=== PATIENT | male | born 1960 | race African-American/Black ===

== ENCOUNTER 2016-06-28 07:33 | Outpatient (CLI) | payer OTHER ==
[2016-06-28 10:15] LABS: Anion Gap 15 mmol/L (10-20); BUN (Urea Nitrogen) 20 mg/dL (8.4-25.7); Calc. Creatinine Clearance 0 mL/min (70-130); Calcium 9.7 mg/dL (7.8-10.44); Carbon Dioxide 21 mmol/L (22-29); Chloride 102 mmol/L (98-107); Estimated GFR-MDRD 78; Glucose 99 mg/dL (70-105); Potassium 5.1 mmol/L (3.5-5.1); Sodium 133 mmol/L (136-145)
== END 2016-06-28 07:34 | disposition home or self-care (01) ==
LOC: NAV LABSP 07:33
PROVIDERS: ATTEND Family Medicine
DX: I12.9 Hypertensive chronic kidney disease with stage 1 through stage 4 chronic kidney disease, or unspecified chronic kidney disease (principal); N18.3 Chronic kidney disease, stage 3 (moderate); R60.0 Localized edema
CPT/HCPCS: 36415; 80048

== ENCOUNTER 2016-06-30 06:47 | Outpatient (CLI) | payer OTHER ==
[2016-06-30 10:31] LABS: #Eosinphils 0.1 thou/uL (0.0-0.7); #Lymphocytes 1.2 thou/uL (1.20-3.40); #Monocytes 0.3 thou/uL (0.11-0.59); #Neutrophils 3.2 thou/uL (1.40-6.50); %Basophils 0.7 % (0.0-1.0); %Eosinophils 2.4 % (0.0-10.0); %Lymphocytes 24.2 % (21.0-51.0); %Monocytes 6.2 % (0.0-10.0); %Neutrophils 66.5 % (42.0-75.0); Hemoglobin 9.1 g/dL (14.0-18.0); Mean Corpuscular Hemoglobin 24.9 pg (27.0-31.0); Mean Corpuscular Volume 80.2 fl (80.0-94.0); Mean Platelet Volume 4.9 fL (7.4-10.4); Platelet Count 327 thou/uL (130-400); RBC Distribution Width 18.8 % (11.5-14.5); Red Blood Cell (RBC) Count 3.65 mill/uL (4.70-6.10); White Blood Cell (WBC) Count 4.8 thou/uL (4.8-10.8)
[2016-06-30 10:42] LABS: ALT (SGPT) 16 U/L (8-55); AST (SGOT) 25 U/L (5-34); Albumin 2.7 g/dL (3.5-5.0); Alkaline Phosphatase 90 U/L (40-150); Anion Gap 11 mmol/L (10-20); BUN (Urea Nitrogen) 18 mg/dL (8.4-25.7); Bilirubin, Direct 0.1 mg/dL (0.1-0.3); Bilirubin, Total 0.2 mg/dL (0.2-1.2); Calc. Creatinine Clearance 0 mL/min (70-130); Calcium 9.5 mg/dL (7.8-10.44); Carbon Dioxide 25 mmol/L (22-29); Chloride 104 mmol/L (98-107); Estimated GFR-MDRD Greater than 90; Globulin 5.5 g/dL (2.4-3.5); Glucose 96 mg/dL (70-105); Potassium 3.9 mmol/L (3.5-5.1); Protein, Total 8.2 g/dL (6.0-8.3); Sodium 136 mmol/L (136-145)
[2016-06-30 17:44] LABS: Hep C IgG Ab Reflex HepC Qnt (NonReactive)
[2016-06-30 18:01] LABS: Hep C Index 10.31 S/CO (0-0.79)
== END 2016-06-30 06:48 | disposition home or self-care (01) ==
LOC: NAV LABSP 06:47
PROVIDERS: ATTEND Internal Medicine Infectious Disease
DX: Z21 Asymptomatic human immunodeficiency virus [HIV] infection status (principal); I10 Essential (primary) hypertension; Z79.01 Long term (current) use of anticoagulants
CPT/HCPCS: 36415; 80053; 82248; 85025; 85048; 86361; 86803; 87522; 87536

== ENCOUNTER 2016-07-08 16:59 | Emergency (ER) | payer OTHER ==
[2016-07-08 19:13] LABS: #Eosinphils 0.2 thou/uL (0.0-0.7); #Lymphocytes 1.1 thou/uL (1.20-3.40); #Monocytes 0.4 thou/uL (0.11-0.59); #Neutrophils 3.9 thou/uL (1.40-6.50); %Basophils 0.3 % (0.0-1.0); %Eosinophils 3.7 % (0.0-10.0); %Monocytes 6.7 % (0.0-10.0); %Neutrophils 69.3 % (42.0-75.0); Hemoglobin 10.2 g/dL (14.0-18.0); Mean Corpuscular HGB CONC 30.6 g/dL (32.0-36.0); Mean Corpuscular Hemoglobin 24.6 pg (27.0-31.0); Mean Corpuscular Volume 80.6 fl (80.0-94.0); Mean Platelet Volume 4.8 fL (7.4-10.4); Platelet Count 407 thou/uL (130-400); RBC Distribution Width 17.7 % (11.5-14.5); Red Blood Cell (RBC) Count 4.14 mill/uL (4.70-6.10); White Blood Cell (WBC) Count 5.6 thou/uL (4.8-10.8)
[2016-07-08 19:24] LABS: Anion Gap 14 mmol/L (10-20); BUN (Urea Nitrogen) 18 mg/dL (8.4-25.7); Calc. Creatinine Clearance 0 mL/min (70-130); Calcium 9.3 mg/dL (7.8-10.44); Carbon Dioxide 25 mmol/L (22-29); Chloride 104 mmol/L (98-107); Estimated GFR-MDRD Greater than 90; Glucose 114 mg/dL (70-105); Potassium 3.7 mmol/L (3.5-5.1); Sodium 139 mmol/L (136-145)
[2016-07-08 19:28] LABS: Hypochromia SLIGHT = 6-15 cells (100X) (0-5/hpf); MDiff Complete? YES; PLT Morphology Comment Appears Adequate; Poikilocytosis SLIGHT = 6-15 cells (100X) (0-5/hpf)
== END 2016-07-08 21:50 | disposition short-term general hospital (02) ==
LOC: NAV ERS 16:59
DX: T83.098A Other mechanical complication of other urinary catheter, initial encounter (principal); R33.9 Retention of urine, unspecified; G62.9 Polyneuropathy, unspecified; B20 Human immunodeficiency virus [HIV] disease; F32.9 Major depressive disorder, single episode, unspecified; Z79.899 Other long term (current) drug therapy; Z87.891 Personal history of nicotine dependence; Z86.19 Personal history of other infectious and parasitic diseases
CPT/HCPCS: 80048; 85025; 99285

== ENCOUNTER 2016-07-13 06:45 | Outpatient (CLI) | payer OTHER ==
[2016-07-15 13:11] LABS: %CD4 (Helper/Inducer) 15.3 % (30.8-58.5); Absolute CD4 168 /uL (359-1519); Lymphocytes/Gated Cell Count 1.1 x10E3/uL (0.7-3.1); Total Lymphocyte 23 % (.); WBC Total Count 4.8 x10E3/uL (3.4-10.8)
== END 2016-07-13 06:46 | disposition home or self-care (01) ==
LOC: NAV LABSP 06:45
PROVIDERS: ATTEND Family Medicine
DX: B20 Human immunodeficiency virus [HIV] disease (principal)
CPT/HCPCS: 36415; 85048; 86361

== ENCOUNTER 2016-07-28 20:59 | Outpatient (CLI) | payer OTHER | END 2016-07-28 21:00 | disposition home or self-care (01) | LOC: NAV LABSP 20:59 | PROVIDERS: ATTEND Family Medicine | DX: L89.314 Pressure ulcer of right buttock, stage 4 (principal) | CPT/HCPCS: 87070; 87077; 87205 ==

== ENCOUNTER 2016-08-17 06:47 | Outpatient (CLI) | payer OTHER | END 2016-08-17 06:48 | disposition home or self-care (01) | LOC: NAV LABSP 06:47 | PROVIDERS: ATTEND Family Medicine | DX: B20 Human immunodeficiency virus [HIV] disease (principal) | CPT/HCPCS: 36415; 85048; 86361 ==

== ENCOUNTER 2016-10-29 22:44 | Emergency (ER) | payer OTHER ==
[2016-10-30 00:04] LABS: Bilirubin Negative (Negative); Blood, Urine Large (Negative); Clarity Cloudy (Clear); Glucose, Urine (Dipstick) Negative (Negative); Leukocyte Large (Negative); Nitrite Negative (Negative); Protein, Urine (Dipstick) 100 mg/dL (Neg-Trace); Specific Gravity, Urine 1.015 (1.005-1.030); pH, Urine 7.5 (5.0-9.0)
[2016-10-30 00:06] LABS: Bacteria/HPF 3+ HPF (None Seen); Squamous Epithelial 0-3 HPF (0-3)
== END 2016-10-30 01:35 ==
LOC: NAV ERS 22:44
DX: Z46.6 Encounter for fitting and adjustment of urinary device (principal); G62.9 Polyneuropathy, unspecified; F32.9 Major depressive disorder, single episode, unspecified; Z87.891 Personal history of nicotine dependence; Z79.899 Other long term (current) drug therapy
CPT/HCPCS: 51705; 81003; 81015; 87086

== ENCOUNTER 2016-12-18 15:02 | Emergency (ER) | payer OTHER ==
[2016-12-18 16:42] LABS: Bilirubin Small (Negative); Blood, Urine Trace (Negative); Glucose, Urine (Dipstick) Negative (Negative); Leukocyte Large (Negative); Nitrite Negative (Negative); Protein, Urine (Dipstick) > or equal to 300 mg/dL (Neg-Trace)
[2016-12-18 16:46] LABS: Clarity Cloudy (Clear)
[2016-12-18 16:53] LABS: Bacteria/HPF 2+ HPF (None Seen); Crystals/HPF 4+ TRIPLE PHOS HPF (Negative); Specific Gravity, Urine 1.023 (1.002-1.036); Squamous Epithelial 0-3 HPF (0-3)
[2016-12-18] MEDS ORDERED: Ciprofloxacin 500 MG TAB ONE (17:08)
== END 2016-12-18 17:26 ==
LOC: NAV ERS 15:02
DX: T83.098A Other mechanical complication of other urinary catheter, initial encounter (principal); N39.0 Urinary tract infection, site not specified; N13.8 Other obstructive and reflux uropathy; G62.9 Polyneuropathy, unspecified; B20 Human immunodeficiency virus [HIV] disease; F32.9 Major depressive disorder, single episode, unspecified; Z87.891 Personal history of nicotine dependence; Z79.899 Other long term (current) drug therapy
CPT/HCPCS: 81003; 81015; 87070; 87077; 87086; 87186; 87205; 99285

== ENCOUNTER 2018-02-26 08:21 | Outpatient (CLI) | payer OTHER ==
[2018-02-26 08:47] LABS: Vancomycin, Trough 19.2 ug/mL
== END 2018-02-26 08:22 | disposition home or self-care (01) ==
LOC: NAV LABSP 08:21 → EDSTATUS 09:43
PROVIDERS: ATTEND Family Medicine
DX: Z51.81 Encounter for therapeutic drug level monitoring (principal); Z79.899 Other long term (current) drug therapy
CPT/HCPCS: 36415; 80202

== ENCOUNTER 2018-02-28 09:06 | Outpatient (CLI) | payer OTHER ==
[2018-02-28 09:21] LABS: Vancomycin, Trough 17.3 ug/mL
== END 2018-02-28 09:07 | disposition home or self-care (01) ==
LOC: NAV LABSP 09:06
PROVIDERS: ATTEND Family Medicine
DX: Z51.81 Encounter for therapeutic drug level monitoring (principal); A49.02 Methicillin resistant Staphylococcus aureus infection, unspecified site; Z79.2 Long term (current) use of antibiotics
CPT/HCPCS: 36415; 80202